=== PATIENT | male | born 2000 | race Caucasian/White ===

== ENCOUNTER 2022-11-26 15:48 | Emergency (ER) | payer OTHER ==
[~2022-11-26] VITALS: Ht 162.6 cm; Wt 82.1 kg
[2022-11-26 15:49] VITALS: BP 142/82
[2022-11-26 20:16] LABS: MONO REFLEX EBV COMP NEGATIVE (NEGATIVE)
[2022-11-26 20:27] LABS: RSV AMPLIFICATION NEGATIVE (NEGATIVE)
[2022-11-28 14:09] LABS: EBV AB TO NUCLEAR ANTIGEN >600.0 U/mL (0.0-17.9); EBV VIRAL CAPSID AG IgM <36.0 U/mL (0.0-35.9)
== END 2022-11-26 21:25 | disposition left against medical advice (07) ==
LOC: M ED 15:48
DX: J02.9 Acute pharyngitis, unspecified (principal); Z53.9 Procedure and treatment not carried out, unspecified reason; F17.200 Nicotine dependence, unspecified, uncomplicated

== ENCOUNTER → 2023-05-16 | Outpatient (REF) | payer OTHER | LOC: M LAB REF 11:24 | PROVIDERS: ATTEND Plastic Surgery Surgery of the Hand | DX: L72.0 Epidermal cyst (principal) ==